=== PATIENT | male | born 1985 | race African-American/Black ===

== ENCOUNTER 2021-04-11 00:17 | Emergency (ER) | payer MEDICAID, OTHER ==
[~2021-04-11] VITALS: Ht 182.9 cm; Wt 81.6 kg
[2021-04-11 00:30] VITALS: BP 117/62
== END 2021-04-11 01:52 | disposition left against medical advice (07) ==
LOC: EDBD 00:17 → ER 00:17
DX: R11.2 Nausea with vomiting, unspecified (principal); F12.10 Cannabis abuse, uncomplicated; Z53.21 Procedure and treatment not carried out due to patient leaving prior to being seen by health care provider